=== PATIENT | female | born 1995 | race African-American/Black ===

== ENCOUNTER 2023-07-06 11:40 | Outpatient (CLI) | payer SELFPAY ==
[2023-07-06 12:57] LABS: Appearance,Urine Cloudy (Clear); Bacteria,Urine Rare /hpf; Bilirubin,Urine Negative (Negative); Blood,Urine Negative (Negative); Color,Urine Light Yellow; Glucose,Urine (UA) Trace (Negative); Ketones,Urine Negative (Negative); Leukocyte Esterase,Urine Trace (Negative); Mucus,Urine Rare /hpf; Nitrite,Urine Negative (Negative); PH, Urine 6.5 (5.0-8.0); Protein,Urine Trace (Negative); RBC,Urine 1 /hpf (0-5); Specific Gravity,Urine 1.022 (1.001-1.035); Squamous Epithelial Cell,Urine 12 /hpf (0-4); Urobilinogen,Urine <2.0 mg/dL (<2.0); WBC,Urine 2 /hpf (0-5)
[2023-07-06 13:13] LABS: Basophils % (A) 0 %; Eosinophils # (A) 0.1 k/uL (0-0.7); Eosinophils % (A) 1 %; HCT 37.4 % (34.0-46.0); HGB 12.3 gm/dL (11.4-16.0); Lymphocytes # (A) 1.6 k/uL (1.0-4.8); Lymphocytes % (A) 22 %; MCH 31.6 pg (25.0-35.0); MCHC 32.9 g/dL (31.0-37.0); MCV 96.2 fL (80.0-100.0); Mean Platelet Volume 9.6; Monocytes # (A) 0.4 k/uL (0-1.0); Monocytes % (A) 6 %; Neutrophils # (A) 4.9 k/uL (1.3-7.7); Neutrophils % (A) 67 %; Platelet Count 172 k/uL (150-450); RBC 3.88 m/uL (3.80-5.40); RDW 13.1 % (11.5-15.5); WBC 7.2 k/uL (3.8-10.6)
[2023-07-06 13:31] LABS: Amphetamine Screen,Urine Not Detected (NotDetected); Barbiturate Screen,Urine Not Detected (NotDetected); Benzodiazepines Screen,Urine Not Detected (NotDetected); Cocaine Screen,Urine Detected (NotDetected); Methadone Screen, Urine Not Detected (NotDetected); Opiate Screen,Urine Not Detected (NotDetected); Oxycodone Screen, Urine Not Detected (NotDetected); Phencyclidine Screen,Urine Not Detected (NotDetected); Tricyclic Antidepressant,Urine Not Detected (NotDetected); Urn Cannabinoid Scrn Not Detected (NotDetected)
--- NOTE | 2023-07-06 15:09 | US ---
EXAMINATION TYPE: US OB >= 14 wk fetus DATE OF EXAM: 07/06/2023 COMPARISON: None CLINICAL INDICATION: Female, 28 years old with history of No care; Unknown dates. Discharge . TECHNIQUE: Transabdominal (TA) GESTATIONAL AGE / DATING Physician Established: Not yet established Dates by LMP: LMP unknown Dates by First Scan: No previous this is first scan Dates by Current Scan: (30 weeks/0 days) EDC: 09/14/2023 Beta HCG (if available): Not available at this time SURVEY IUP: Single PLACENTA: Posterior PREVIA: No Previa JORGE: 17.8 cm Upper limits of normal CERVICAL LENGTH (transabdominal: norm > 3.0cm): 2.8 cm. No cervical funneling. BIOMETRY PRESENTATION: Vertex BPD: 7.6 cm 30 weeks / 3 days HC: 28.1 cm 30 weeks / 6 days AC: 25.2 cm 28 weeks / 6 days FL: 5.4 cm 28 weeks / 6 days ESTIMATED WEIGHT IN GRAMS: 1384 grams ESTIMATED WEIGHT IN LBS/OZ: 3 lbs. 1 oz. HC/AC: 1.1 FL/AC: 22% HEART RATE: 152 bpm RHYTHM: Normal Four-chamber heart: Normal. Nose/lips: Normal. Kidneys: Prominent renal pelves measuring 3.8 mm on one side and 2.3 mm on the other still fall withi n acceptable limits (normal less than 7 mm at or after 28 weeks gestational age) Bladder: Normal. Three-vessel cord: Normal Specialty Molder notes: Single live IUP measuring 30 weeks 0 days. IMPRESSION: 1. Single live intrauterine with average gestational age of 30 weeks 0 days by current ultr asound biometry. 2. JORGE at the upper limits of normal at 17.8 cm. 3. Anterior placenta without previa. Cephalic presentation. 4. Cervical length of 2.8 cm is slightly short. No funneling is seen. Consider surveillance follow-up to exclude early cervical incompetence.
[2023-07-06 16:32] VITALS: BP 117/63; PULSE 111; RESP 16; TEMP 97.4
[2023-07-06 20:57] LABS: Hepatitis B Surface Antigen Nonreactive (Nonreactive)
[2023-07-07 02:08] LABS: HIV 2 AB Non-Reactive (Non-Reactive); HIV AB P24 Non-Reactive (Non-Reactive); HIV P24 AG Non-Reactive (Non-Reactive)
[2023-07-07 13:25] LABS: N. gonorrhoeae,PCR Negative (Negative)
[2023-07-07 13:52] LABS: C. trachomatis,PCR Negative (Negative)
--- NOTE | 2023-07-14 09:42 | P.MSEPDOC ---
Presenting Problems - Arrival Data Date of Arrival on Unit: 07/06/23 Time of Arrival on Unit: 11:40 Mode of Transport: Ambulatory - Complaint OB-Reason for Admission/Chief Complaint: Other Comment: Lower abdominal pain, concerned over wellbeing due to no care Medical History - Information : 5 Para: 4 Term: 3 : 1 Abortions: Spontaneous or Elective: 0 Number of Living Children: 4 - Gestational Age Gestational Age by NURA (wks/days): 30 Weeks and 0 Days - History Complications: Prior Review of Systems - Review of Systems Constitutional: No problems Breast: No problems ENT: No problems Cardiovascular: No problems Respiratory: No problems Gastrointestinal: No problems Genitourinary: No problems Musculoskeletal: No problems Neurological: No problems Skin: No problems Vital Signs - Temperature Temperature: 97.4 F Temperature Source: Temporal Artery Scan - Pulse Pulse Oximetery Pulse Rate: 111 Pulse Assessment Method: Pulse Oximetry - Respirations Respiratory Rate: 16 Oxygen Delivery Method: Room Air - Blood Pressure Right Arm Blood Pressure: 117/63 Blood Pressure Mean: 81 Blood Pressure Source: Automatic Cuff Medical Screen Scoring - Assessment - Baby A Baseline FHR: 145 Heart Rate - NICHD Category: Category I (Normal) NST: Reactive Physician Notification - Physician Notified Physician Notified Date: 07/06/23 Physician Notified Time: 12:38 Physician: Will Ryan Order Received: Yes - Notification Comment Comment: Dr. Ryan on unit, report given on maternal complaints of lower abdominal pain and concerns over baby's wellbeing. Pt has not had any care this but has an appointment down at [facility] on 07/13. Pt is also concerned that she has not gotten her rhogam shot and knows she needs it. Orders to draw all labs, UDS, complete OB U/S, and rhogam shot if 28wks gestation per U/S report. Orders to discharge pt home after results. 1525 - Dr. Ryan called, report given that U/S showed JORGE of 17.8, slightly shortened cervix, and 30wk gestation. Blood type is not currently back yet but lab stated that her antibody screen was positive (pt had bleeding back in february and never got rhogam). Pt has an appointment on 07/14/23. Pt is asking to leave now. Orders from MD to discharge pt home/back to [facility]. Maternal Triage Index - Maternal Triage Index Presenting for scheduled procedure w/no complaint: No - Stat/Priority 1 Stat Priority 1: No - Urgent/Priority 2 Urgent Priority 2: No - Prompt/Priority 3 Prompt Priority 3: No - Non-Urgent/Priority 4 Non-Urgent Priority 4: Yes Criteria Met for Priority 4: 30wks, lower abdominal pain down into her legs, concerned about wellbeing due to no care Disposition - Disposition OB Disposition: Discharge to home Discharge Date: 07/06/23 Discharge Time: 15:27 I agree with the RN Medical Screening Exam: Yes Physician's MSE Comment: I have neither seen nor examined the patient. Case reviewed; plan agreed upon as documented in EMR&OBIX.: Yes Diagnosis: RELATED CONDITIONS, UNSPECIFIED, THIRD TRIMESTER
== END 2023-07-06 15:30 | disposition home or self-care (01) ==
LOC: FBPOP 11:40
PROVIDERS: ATTEND Obstetrics & Gynecology
DX: O26.893 Other specified pregnancy related conditions, third trimester (principal); R10.30 Lower abdominal pain, unspecified; Z3A.30 30 weeks gestation of pregnancy; Z88.0 Allergy status to penicillin
CPT/HCPCS: 59025; 76805; 80306; 81001; 82947; 85025; 86762; 86780; 86850; 86870; 86880; 86900; 86901; 87340; 87390; 87491; 87591; 99213